=== PATIENT | female | born 1980 | race African-American/Black ===

== ENCOUNTER 2017-03-04 08:15 | Outpatient (CLI) | payer OTHER | END 2017-03-04 08:16 | disposition home or self-care (01) | LOC: DTY/OP 08:15 | PROVIDERS: ATTEND Specialist | DX: Z01.818 Encounter for other preprocedural examination (principal); E66.01 Morbid (severe) obesity due to excess calories | CPT/HCPCS: 97802 ==

== ENCOUNTER 2019-02-14 11:41 | Outpatient (CLI) | payer BC ==
--- NOTE | 2019-02-14 12:23 | RAD ---
PA AND LATERAL OF THE CHEST: INDICATION: History of chest congestion and shortness of breath. FINDINGS: No consolidation, pleural effusion, or pneumothorax is evident. Cardiomediastinal silhouette is with in normal limits. No acute osseous abnormality is evident. IMPRESSION: No acute cardiopulmonary abnormality. POS: [facility]
== END 2019-02-14 11:42 | disposition home or self-care (01) ==
LOC: BICRAD 11:41
PROVIDERS: ATTEND Physician Assistant
DX: R06.02 Shortness of breath (principal); R09.89 Other specified symptoms and signs involving the circulatory and respiratory systems
CPT/HCPCS: 71046

== ENCOUNTER 2019-05-07 14:58 | Outpatient (CLI) | payer BC ==
--- NOTE | 2019-05-07 16:23 | RAD ---
LUMBAR SPINE SIX VIEWS: History: Low back pain. Spondylosis. FINDINGS: Exam is severely limited due to soft tissue attenuation. The lumbar vertebra maintain normal height and alignment and disc spaces are preserved. No evidence o f listhesis. Alignment appears preserved with flexion and extension. IMPRESSION: Limited exam due to soft tissue attenuation. Lumbar spine appears unremarkable. POS: [facility]
--- NOTE | 2019-05-07 16:25 | RAD ---
LEFT KNEE VIEW TWO VIEWS: History: Knee pain. FINDINGS: There are mild degenerative changes present. Mild spurring from the medial femoral condyle. Minimal s purring from the patella. No fracture or acute abnormality. Joint spaces are maintained. IMPRESSION: Mild degenerative changes, left knee. POS: [facility]
--- NOTE | 2019-05-07 16:26 | RAD ---
RIGHT KNEE TWO VIEWS: History: Knee pain. FINDINGS: Moderate degenerative changes on the right. Spurring from the medial femoral condyle/tibial spines, a nd posterior patella. Mild loss of medial joint space. No effusion. No fracture. IMPRESSION: Mild to moderate degenerative change. POS: [facility]
== END 2019-05-07 14:59 | disposition home or self-care (01) ==
LOC: BICRAD 14:58
PROVIDERS: ATTEND Pain Medicine Interventional Pain Medicine
DX: M47.816 Spondylosis without myelopathy or radiculopathy, lumbar region (principal); M25.561 Pain in right knee; M25.562 Pain in left knee; M54.5 Low back pain; G89.4 Chronic pain syndrome; E66.01 Morbid (severe) obesity due to excess calories; M17.0 Bilateral primary osteoarthritis of knee
CPT/HCPCS: 72100